=== PATIENT | male | born 1960 | race African-American/Black ===

== ENCOUNTER 2021-05-26 12:14 | Inpatient (IN) | payer OTHER ==
[2021-05-26 13:27] VITALS: BMI 26.7
[2021-05-26] MEDS ORDERED: MAG HYDROX/AL HYDROX/SIMETH 30 ML UNIT-DOSE CUP PO PRN (14:03)
[2021-05-26] MEDS ORDERED: ONDANSETRON *ODT* 4 MG TABLET SL PRN (14:03)
[2021-05-26] MEDS ORDERED: MAGNESIUM CITRATE 300 ML BOTTLE PO PRN (14:03)
[2021-05-26] MEDS ORDERED: ACETAMINOPHEN 325 MG TABLET (FP) PO PRN ×2 (14:03)
[2021-05-26] MEDS ORDERED: methaDONE HCL 10 MG TABLET (FOR DETOX USE ONLY) PO ONE (14:03)
[2021-05-26] MEDS ORDERED: MAGNESIUM HYDROX 2400MG/30ML ORAL SUSPENSION 30 ML CUP PO PRN (14:03)
[2021-05-26] MEDS ORDERED: NICOTINE 10 MG CARTRIDGE (INHALER) IH PRN (14:03)
[2021-05-26] MEDS ORDERED: BISMUTH SUBSALICYLATE 262 MG/15 ML BTL PO PRN (14:03)
[2021-05-26] MEDS: NICOTINE 14 MG/24 HOURS TOPICAL PATCH TD SCH (16:30)
[2021-05-26] MEDS: PRENATAL VITAMINS W/ FOLIC ACID TABLET (FP) PO SCH (16:30)
[2021-05-26] MEDS: hydrOXYzine PAMOATE 25 MG CAPSULE (FP) PO SCH ×2 (17:39→22:53)
[2021-05-26] MEDS: IBUPROFEN 400 MG TABLET (FP) PO PRN (19:56)
[2021-05-26] MEDS: MELATONIN 5 MG TABLETS PO SCH (22:53)
[2021-05-26] MEDS: THIAMINE HCL 100 MG TABLET (FP) PO SCH (22:53)
[2021-05-27] MEDS: hydrOXYzine PAMOATE 25 MG CAPSULE (FP) PO SCH ×5 (06:00→22:54)
[2021-05-27] MEDS ORDERED: methaDONE HCL 10 MG TABLET (FOR DETOX USE ONLY) ONE (09:50)
[2021-05-27] MEDS: cloNIDine HCL 0.1 MG TABLET PO PRN (10:19)
[2021-05-27] MEDS: NICOTINE 14 MG/24 HOURS TOPICAL PATCH TD SCH (10:19)
[2021-05-27] MEDS: METHOCARBAMOL 500 MG TABLET PO PRN (10:19)
[2021-05-27] MEDS: BACITRACIN 0.9 GM PACKET TP SCH ×2 (10:19→22:54)
[2021-05-27] MEDS: PRENATAL VITAMINS W/ FOLIC ACID TABLET (FP) PO SCH (10:21)
[2021-05-27 11:55] LABS: HEMATOCRIT 37.3 % (35.4-49); HEMOGLOBIN 12.5 GM/dL (11.7-16.9); MCH 29.3 pg (25.7-33.7); MCHC 33.6 g/dl (32.0-35.9); MEAN CELL VOLUME 87.2 fl (80-96); MEAN PLT VOLUME 7.4 fl (7.5-11.1); PLATELET COUNT 316 10^3/uL (134-434); RBC 4.28 M/mm3 (4.00-5.60); RDW 13.3 % (11.9-15.9); WHITE BLOOD COUNT 6.4 K/mm3 (4.0-10.0)
[2021-05-27 12:33] LABS: BLOOD UREA NITROGEN 15.2 mg/dL (7-18); CALCIUM 8.3 mg/dL (8.5-10.1)
[2021-05-27 12:34] LABS: ALBUMIN 3.2 g/dl (3.4-5.0)
[2021-05-27 12:39] LABS: CREATININE 1.1 mg/dL (0.55-1.3)
[2021-05-27 12:40] LABS: BILIRUBIN,TOTAL 0.4 mg/dL (0.2-1); TOT PROT 6.7 g/dl (6.4-8.2)
[2021-05-27] MEDS: MELATONIN 5 MG TABLETS PO SCH (22:53)
[2021-05-27] MEDS: THIAMINE HCL 100 MG TABLET (FP) PO SCH (22:55)
[2021-05-27] MEDS: traZODone HCL 50 MG TABLET (FP) PO SCH (22:55)
[2021-05-28] MEDS: hydrOXYzine PAMOATE 25 MG CAPSULE (FP) PO SCH (06:59)
[2021-05-28] MEDS ORDERED: methaDONE HCL 10 MG TABLET (FOR DETOX USE ONLY) PO ONE (10:00)
[2021-05-28] MEDS: IBUPROFEN 400 MG TABLET (FP) PO PRN (10:39)
[2021-05-28] MEDS: METHOCARBAMOL 500 MG TABLET PO PRN (10:39)
[2021-05-28] MEDS: NICOTINE 14 MG/24 HOURS TOPICAL PATCH TD SCH (10:40)
[2021-05-28] MEDS: PRENATAL VITAMINS W/ FOLIC ACID TABLET (FP) PO SCH (10:41)
[2021-05-28] MEDS: BACITRACIN 0.9 GM PACKET TP SCH ×2 (10:41→22:38)
[2021-05-28] MEDS: cloNIDine HCL 0.1 MG TABLET PO PRN (22:43)
[2021-05-28] MEDS: MELATONIN 5 MG TABLETS PO SCH (22:45)
[2021-05-28] MEDS: THIAMINE HCL 100 MG TABLET (FP) PO SCH (22:45)
[2021-05-28] MEDS: traZODone HCL 50 MG TABLET (FP) PO SCH (22:45)
[2021-05-29] MEDS ORDERED: methaDONE HCL 10 MG TABLET (FOR DETOX USE ONLY) ONE (09:25)
[2021-05-29] MEDS: hydrOXYzine PAMOATE 25 MG CAPSULE (FP) PO PRN ×2 (10:37→22:54)
[2021-05-29] MEDS: BACITRACIN 0.9 GM PACKET TP SCH ×2 (10:37→22:53)
[2021-05-29] MEDS: METHOCARBAMOL 500 MG TABLET PO PRN (10:37)
[2021-05-29] MEDS: NICOTINE 14 MG/24 HOURS TOPICAL PATCH TD SCH (10:38)
[2021-05-29] MEDS: PRENATAL VITAMINS W/ FOLIC ACID TABLET (FP) PO SCH (10:39)
[2021-05-29] MEDS: MELATONIN 5 MG TABLETS PO SCH (22:54)
[2021-05-29] MEDS: traZODone HCL 50 MG TABLET (FP) PO SCH (22:54)
[2021-05-29] MEDS: THIAMINE HCL 100 MG TABLET (FP) PO SCH (22:54)
[2021-05-30] MEDS ORDERED: methaDONE HCL 10 MG TABLET (FOR DETOX USE ONLY) PO ONE (10:00)
[2021-05-30] MEDS: hydrOXYzine PAMOATE 25 MG CAPSULE (FP) PO PRN ×2 (10:11→18:00)
[2021-05-30] MEDS: PRENATAL VITAMINS W/ FOLIC ACID TABLET (FP) PO SCH (10:11)
[2021-05-30] MEDS: BACITRACIN 0.9 GM PACKET TP SCH ×2 (10:13→22:18)
[2021-05-30] MEDS: IBUPROFEN 400 MG TABLET (FP) PO PRN (10:13)
[2021-05-30] MEDS: NICOTINE 14 MG/24 HOURS TOPICAL PATCH TD SCH (11:22)
[2021-05-30] MEDS: METHOCARBAMOL 500 MG TABLET PO PRN (14:39)
[2021-05-30] MEDS: THIAMINE HCL 100 MG TABLET (FP) PO SCH (22:18)
[2021-05-30] MEDS: MELATONIN 5 MG TABLETS PO SCH (22:18)
[2021-05-30] MEDS: traZODone HCL 50 MG TABLET (FP) PO SCH (22:18)
[2021-05-31 05:55] VITALS: BP 107/66; PULSE 60; TEMP 96.8
[2021-05-31] MEDS: METHOCARBAMOL 500 MG TABLET PO PRN (07:50)
[2021-05-31] MEDS: IBUPROFEN 400 MG TABLET (FP) PO PRN (07:50)
[2021-05-31] MEDS: PRENATAL VITAMINS W/ FOLIC ACID TABLET (FP) PO SCH (10:49)
[2021-05-31] MEDS: hydrOXYzine PAMOATE 25 MG CAPSULE (FP) PO PRN (10:51)
[2021-05-31] MEDS: NICOTINE 14 MG/24 HOURS TOPICAL PATCH TD SCH (10:51)
[2021-05-31] MEDS: BACITRACIN 0.9 GM PACKET TP SCH ×2 (14:00→14:01)
== END 2021-05-31 10:55 | disposition home or self-care (01) | DRG 773 ==
LOC: YASAS 12:14 → Y3N 15:12
PROVIDERS: ADMIT Allergy & Immunology; ATTEND Allergy & Immunology
PROC: HZ2ZZZZ Detoxification Services for Substance Abuse Treatment (ICD-10-PCS; principal; 2021-05-26)
DX: F11.23 Opioid dependence with withdrawal (principal); F13.230 Sedative, hypnotic or anxiolytic dependence with withdrawal, uncomplicated; F14.20 Cocaine dependence, uncomplicated; F17.210 Nicotine dependence, cigarettes, uncomplicated; F41.8 Other specified anxiety disorders; F19.24 Other psychoactive substance dependence with psychoactive substance-induced mood disorder; R76.11 Nonspecific reaction to tuberculin skin test without active tuberculosis; G47.00 Insomnia, unspecified; Z88.0 Allergy status to penicillin; Z91.19 Patient's noncompliance with other medical treatment and regimen; Z86.19 Personal history of other infectious and parasitic diseases; Z56.0 Unemployment, unspecified
CPT/HCPCS: 36415; 71046-TC-FY; 80053; 85027; 86780; 93005; 93010; C9803; J0735; U0003; U0005